=== PATIENT | male | born 1945 | race Caucasian/White ===

== ENCOUNTER 2021-01-28 07:04 | Emergency (ER) | payer MEDICARE, OTHER, SELFPAY ==
[2021-01-28] VITALS (54 sets, daily range): BP systolic 133–192; BP diastolic 79–122; PULSE 78–133; RESP 10–28; TEMP 36.2; O2SAT 95–100; BMI 30.2
--- NOTE | 2021-01-28 | DI.RAD.S_ITS ---
PROCEDURE: XR CHEST 1V INDICATIONS: ENDOTRACHIAL TUBE PLACEMENT TECHNIQUE: One view of the chest was acquired. COMPARISON: [facility], CT, CT ANGIO HEAD AND NECK, 01/28/2021, 8:55. [facility], CR, XR CHEST 1V, 01/28/2021, 8:06. FINDINGS: Surgical changes and devices: Endotracheal tube in the midtrachea. Lungs and pleura: Lungs appear clear. No pleural effusions or pneumothorax. Mediastinum: Mediastinal contours appear normal. Heart size is enlarged. Bones and chest wall: No suspicious bony lesions. Overlying soft tissues appear unremarkable. IMPRESSION: Endotracheal tube in the midtrachea. Cardiomegaly. Dictated by: Miles Harrison M.D. on 01/28/2021 at 11:14 Approved by: Miles Harrison M.D. on 01/28/2021 at 11:16
--- NOTE | 2021-01-28 07:11 | DI.CT.S_ITS ---
PROCEDURE: CT HEAD/BRAIN WO CON INDICATIONS: unresponsive TECHNIQUE: Noncontrast 4.5 mm thick angled axial sections acquired from the foramen magnum to the vertex, with coronal and sagittal reformats. For radiation dose reduction, the following was used: automated exposure control, adjustment of mA and/or kV according to patient size. COMPARISON: None. FINDINGS: Image quality: Excellent. CSF spaces: Basal cisterns are patent. No extra-axial fluid collections. The ventricles are symmetric in size and shape. Brain: No intracranial bleeds or masses. There is cerebral volume loss for age, with resultant ventricular and sulcal prominence. There are periventricular and deep white matter chronic small vessel ischemic changes. There is intracranial internal carotid artery atherosclerosis. Skull and face: Calvarium and visualized facial bones appear intact, without suspicious lesions. Sinuses: Visualized sinuses and mastoids are clear. IMPRESSION: Mild motion artifact, no acute disease found.7 Dictated by: Adan Raymond M.D.7 on 01/28/2021 at 7:19 Approved by: Adan Raymond M.D. on 01/28/2021 at 7:24
--- NOTE | 2021-01-28 07:21 | ED_ITS ---
HPI - Altered Mental Status General Chief Complaint: Unresponsive Stated Complaint: Seizure - Unconscious Time Seen by Provider: 01/28/21 07:21 Source: family and EMS Mode of arrival: EMS Limitations: altered mental status History of Present Illness HPI narrative: 75-year-old male nonsmoker with history of hypertension, heart failure, amyloidosis followed by cardiology at the [facility] presents by EMS this morning for what sounds like seizure-like activity followed by prolonged unconsciousness. Medics report, per the , the patient went to bed in his normal state of health at 2200 and this morning had some seizure-like activity and heavy breathing that was witnessed by the son at 0600 Apparently he became very rigid in his jaw and extremities for with the son reports up to 20 minutes or so and the patient has been unconscious and unresponsive ever since. He has no history of trauma, fevers or seizure history. Paramedics found him with stable vital signs, guarding his airway, blood glucose over 100. Patient was given Narcan 0.8 mg IV. There is no report of use of opioids, benzo diazepines, alcohol or other sedating agents. Nasopharyngeal airway placed by medics and caryn. Patient taken directly to CT and activated as code stroke given concern for bleed. MD complaint: altered mental status Onset (ago): hour(s) Timing confirmed by: spouse and family member Severity: severe Consistency of symptoms: constant Treatments prior to arrival: oxygen Related Data Home Medications Medication Instructions Recorded Confirmed albuterol sulfate 2 puff INHALATION PRN PRN 01/28/21 01/28/21 betamethasone dipropionate 1 applic TOPICAL DAILY PRN 01/28/21 01/28/21 carvedilol 3.125 mg PO BID 01/28/21 01/28/21 eplerenone 25 mg 01/28/21 furosemide 40 mg 01/28/21 rosuvastatin 5 mg PO Q OTHER DAY 01/28/21 01/28/21 sacubitril-valsartan [Entresto] 1 tab PO BID 01/28/21 01/28/21 tafamidis 61 mg PO 01/28/21 Allergies Allergy/AdvReac Type Severity Reaction Status Date / Time No Known Drug Allergies Allergy Verified 01/28/21 07:39 Review of Systems Review of Systems ROS Unobtainable: Unobtainable due to mental status/LOC Patient History Substance Use Type: does not use Exam Narrative Exam Narrative: GENERAL: [75] year old patient appears stated age. Well- developed patient, in mild distress. Guarding airway, not responding to noxious stimuli though demonstrating movement of all 4 extremities HEAD: Atraumatic. Normocephalic. EYES: Pupils equal round and reactive, pinpoint. Extraocular motions intact. No scleral icterus. No injection or drainage. ENT: Nose without bleeding, purulent drainage. Throat without erythema, tonsillar hypertrophy or exudate. Airway patent. NECK: Trachea midline. Non tender CARDIOVASCULAR: Regular rate and rhythm without murmurs, gallops, or rubs. RESPIRATORY: Clear to auscultation. Breath sounds equal bilaterally. No wheezes, rales, or rhonchi. GASTROINTESTINAL: Abdomen soft, non-tender, nondistended. EXTREMITIES: No edema or joint tenderness. BACK: Nontender without deformity or crepitance. No flank tenderness. NEURO: Patellar reflfexes in tact. SKIN: No rash or erythema of visible areas Initial Vital Signs Initial Vital Signs: Vital Signs Temperature 97.1 F L 01/28/21 07:15 Pulse Rate 78 01/28/21 07:15 Respiratory Rate 20 01/28/21 07:15 Blood Pressure 192/105 H 01/28/21 07:15 Pulse Oximetry 98 01/28/21 07:15 Procedures Intubation Time out performed: Yes sedative: Ketamine Mg Given: 40 paralytic: Rocuronium Mg Given: 120 Laryngoscope: other Assist Device Used: other ET Tube Size: 7.5 ET Tube Uncuffed: No Tube Secured Depth (cm): 23 Tube Secured Location: teeth Tube Placement Confirmation: Visualized tube passing through cords, Equal breath sounds bilaterally, No breath sounds over epigastrium, Confirmation by capnometry and Chest Xray Patient Tolerated Procedure: Well Intubation Complications: none Scores GCS [place] coma scale eye opening: None NIH Stroke Scale Level of Conciousness: Not alert, requires repeated stimulation to attend, or is obtunded Ask month/age: Answers neither question correctly, aphasic, stuporous, coma Open/close eyes, close hand: Performs neither task correctly Best gaze horizontal: Forced deviation or total gaze paresis not overcome Visual zabala: Bilateral hemianopia, blind Facial palsy: Normal symetrical movement Left arm drift: No effort against gravity Right arm drift: No effort against gravity Left leg drift: No effort against gravity Right leg drift: No effort against gravity Limb ataxia: Amputation, joint fusion Sensory on face/arms/legs: Severe to total sensory loss, 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 Does not recognize own hand, one side Total NIH Stroke scale score: 32 Course Orders Ordered: ED Orders 01/28/21 07:07 EKG-12 Lead Stat 01/28/21 07:11 CT head/brain wo con Stat 01/28/21 07:25 Venous Blood Gas Stat 01/28/21 07:30 Acetaminophen Stat Ammonia (NH3) Stat Complete Blood Count AUTO DIFF Stat Comprehensive Metabolic Panel Stat Ethanol (ETOH) Stat Lactate (Lactic Acid) Stat NT-proBNP (BNP-Adult 18+) Stat Osmolality, Serum Stat Procalcitonin Stat Prolactin Stat Salicylate Stat Thyroid Stimulating Hormone Stat Troponin & CK Cardiac Panel Stat 01/28/21 07:40 COVID19 - ADMIT (TICKETING CLERK swab/PCR) Stat Urinalysis and Microscopic Stat Urine Drug Screen, Rapid Stat 01/28/21 07:55 Blood Culture Stat 01/28/21 08:04 XR chest 1V Stat 01/28/21 08:53 CT angio head and neck Stat Discontinued Medications Sodium Chloride (Normal Saline 0.9%) 1,000 mls @ 150 mls/hr IV CONT MARY Last Infusion: 01/28/21 10:52 Dose: 0 mls/hr Documented by: Admin: 01/28/21 07:23 Dose: 150 mls/hr Documented by: AMARJIT Thiamine HCl 200 mg/ Sodium (Chloride) 102 mls @ 408 mls/hr IV NOW ONE Stop: 01/28/21 07:12 Last Infusion: 01/28/21 07:45 Dose: 0 mls/hr Documented by: Admin: 01/28/21 07:23 Dose: 408 mls/hr Documented by: NEFTALIONEBrandt Naloxone HCl (Naloxone 0.4 Mg/Ml Vial) 0.2 mg IV Q2MIN PRN PRN Reason: Opiate Reversal Last Admin: 01/28/21 07:23 Dose: 0.2 mg Documented by: AMARJIT Rocuronium Juliaetta (Rocuronium 100 Mg/10 Ml Vial) 120 mg IV NOW ONE Stop: 01/28/21 10:35 Last Admin: 01/28/21 11:26 Dose: 120 mg Documented by: SUKHDEEP Reevaluation(s) Reevaluation #1: patient airway guarded. SpO2 96%, coughs with suction, clearing throat. Vital Signs Vital signs: Vital Signs - 8 hr 01/28/21 07:15 01/28/21 07:30 01/28/21 07:35 Temperature 97.1 F L Pulse Rate 78 83 81 Respiratory Rate 20 20 21 Blood Pressure 192/105 H 167/99 H Pulse Oximetry 98 98 97 01/28/21 07:40 01/28/21 07:44 01/28/21 07:45 Temperature Pulse Rate 94 H 86 88 Respiratory Rate 28 H 22 19 Blood Pressure 172/98 H Pulse Oximetry 98 98 98 01/28/21 07:50 01/28/21 07:55 01/28/21 07:56 Temperature Pulse Rate 91 H 93 H 91 H Respiratory Rate 19 21 20 Blood Pressure 175/98 H Pulse Oximetry 97 98 97 01/28/21 07:57 01/28/21 07:59 01/28/21 08:00 Temperature Pulse Rate 91 H 91 H 89 Respiratory Rate 19 20 20 Blood Pressure 175/105 H 166/96 H 162/97 H Pulse Oximetry 98 97 97 01/28/21 08:05 01/28/21 08:10 01/28/21 08:12 Temperature Pulse Rate 89 118 H 90 Respiratory Rate 19 20 19 Blood Pressure 147/95 H 172/95 H Pulse Oximetry 96 96 97 01/28/21 08:15 01/28/21 08:20 01/28/21 08:25 Temperature Pulse Rate 123 H 124 H 120 H Respiratory Rate 21 23 21 Blood Pressure 168/121 H 176/95 H Pulse Oximetry 97 97 96 01/28/21 08:26 01/28/21 08:30 01/28/21 08:35 Temperature Pulse Rate 104 H 122 H 122 H Respiratory Rate 23 20 21 Blood Pressure 151/95 H 167/85 H 137/90 Pulse Oximetry 96 96 96 01/28/21 08:40 01/28/21 08:45 01/28/21 08:50 Temperature Pulse Rate 131 H 120 H 121 H Respiratory Rate 26 H 18 19 Blood Pressure 147/94 H 160/89 H 157/95 H Pulse Oximetry 97 97 96 01/28/21 09:08 01/28/21 09:10 01/28/21 09:15 Temperature Pulse Rate 118 H 117 H 118 H Respiratory Rate 17 18 19 Blood Pressure 133/88 Pulse Oximetry 97 96 96 01/28/21 09:20 01/28/21 09:25 01/28/21 09:30 Temperature Pulse Rate 119 H 119 H 119 H Respiratory Rate 18 20 17 Blood Pressure 134/91 H Pulse Oximetry 96 95 96 01/28/21 09:35 01/28/21 09:40 01/28/21 09:45 Temperature Pulse Rate 120 H 119 H 121 H Respiratory Rate 19 18 18 Blood Pressure Pulse Oximetry 95 96 96 01/28/21 09:50 01/28/21 09:55 01/28/21 10:00 Temperature Pulse Rate 119 H 116 H 116 H Respiratory Rate 19 19 19 Blood Pressure 137/90 Pulse Oximetry 96 96 96 01/28/21 10:05 01/28/21 10:10 01/28/21 10:15 Temperature Pulse Rate 115 H 118 H 117 H Respiratory Rate 17 22 20 Blood Pressure Pulse Oximetry 96 96 97 01/28/21 10:20 01/28/21 10:25 01/28/21 10:30 Temperature Pulse Rate 116 H 116 H 115 H Respiratory Rate 19 19 20 Blood Pressure Pulse Oximetry 96 97 97 01/28/21 10:32 01/28/21 10:33 01/28/21 10:34 Temperature Pulse Rate 115 H 113 H 112 H Respiratory Rate 20 20 19 Blood Pressure 141/90 H 149/87 H 140/79 Pulse Oximetry 96 97 96 01/28/21 10:35 01/28/21 10:36 01/28/21 10:37 Temperature Pulse Rate 122 H 119 H 127 H Respiratory Rate 16 10 L 18 Blood Pressure 136/93 H 140/89 158/108 H Pulse Oximetry 95 100 100 01/28/21 10:38 01/28/21 10:40 01/28/21 10:42 Temperature Pulse Rate 132 H 133 H 127 H Respiratory Rate 12 18 12 Blood Pressure 167/117 H 178/122 H 163/114 H Pulse Oximetry 100 100 99 01/28/21 10:45 01/28/21 10:50 Temperature Pulse Rate 124 H 121 H Respiratory Rate 15 14 Blood Pressure 157/98 H Pulse Oximetry 98 99 MDM - Altered Mental Status Lab Data Result diagrams: 01/28/21 07:30 01/28/21 07:30 Labs: Lab Results 01/28/21 01/28/21 01/28/21 Range/Units 07:25 07:30 07:30 WBC 5.0 (4.5-11.0) X10^3/uL RBC 4.55 (4.5-5.9) X10^6/uL Hgb 14.8 (13.5-17.5) g/dL Hct 44.6 (41-53) % MCV 97.9 (80-100) fL MCH 32.6 (26-34) PG MCHC 33.3 (30-36) % RDW 13.3 (11.6-14.8) % Plt Count 226 (150-400) X10^3/uL Neut % (Auto) 53.6 (50-75) % Lymph % (Auto) 26.9 (25-40) % Anson % (Auto) 15.5 H (3-14) % Eos % (Auto) 3.5 (2-4) % Baso % (Auto) 0.5 (0-2) % Neut # (Auto) 2700 (6744-4905) /uL Lymph # (Auto) 1400 (8920-1267) /uL Anson # (Auto) 800 (0-900) /uL Eos # (Auto) 200 (0-450) /uL Baso # (Auto) 0 (0-100) /uL VBG pH 7.44 H (7.33-7.43) VBG pCO2 30.1 L (45-50) mmHg VBG pO2 46 H (35-45) mmHg VBG HCO3 21 L (23-28) mmol/L VBG Total CO2 21 L (24-29) mmol/L VBG O2 Saturation 84 H (70-75) % VBG Base Excess -4.0 L (0-4) mmol/L Sodium 138 (137-145) mmol/L Potassium 4.3 (3.4-5.1) mmol/L Chloride 107 (98-107) mmol/L Carbon Dioxide 21 L (22-32) mmol/L BUN 30 H (9-20) mg/dL Creatinine 1.28 H (0.66-1.25) mg/dL Estimated GFR 54.8 L (>60) mL/min BUN/Creatinine Ratio 23.4 H (6-22) Glucose 113 H (80-110) mg/dL Lactate (0.7-2.1) mmol/L Calcium 9.2 (8.4-10.2) mg/dL Total Bilirubin 0.7 (0.2-1.3) mg/dL AST 32 (17-59) IU/L ALT 37 (<50) IU/L Alkaline Phosphatase 117 (38-126) U/L Ammonia (9-30) umol/L Total Creatine Kinase 68 (55-170) U/L CK-MB (CK-2) TNP CK-MB (CK-2) Rel Index TNP Troponin I 0.137 H* (0.01-0.034) ng/mL NT-Pro-B Natriuret Pep (<450) pg/mL Total Protein 6.9 (6.3-8.2) g/dL Albumin 3.9 (3.5-5.0) g/dL Globulin 3.0 (1.7-4.1) g/dL Albumin/Globulin Ratio 1.3 (1.0-2.8) Procalcitonin 0.09 (<0.5) ng/mL TSH (0.47-4.68) uIU/mL Prolactin 26.5 H (3.7-17.9) ng/mL Urine Color Urine Appearance Urine pH (4.5-8.0) Ur Specific N[place]omo (1.000-1.035) Urine Protein (Negative) Urine Glucose (UA) (Negative) g/dL Urine Ketones (NEGATIVE) Urine Occult Blood (Negative) Urine Nitrate (Negative) Urine Bilirubin (NEGATIVE) Urine Urobilinogen (0.2) E.U./dL Ur Leukocyte Esterase (NEGATIVE) Urine RBC (0-5/HPF) Urine WBC (0-5/HPF) Ur Squamous Epith Cells (0-5/HPF) Urine Bacteria (None) Ur Culture Indicated? Salicylates < 1.0 (<20) mg/dL U Opiates 300ng/mL cut (Negative) Ur Oxycodone Screen (Negative) Urine Methadone Screen (Negative) Acetaminophen < 10 L (10-30) ug/mL Ur Barbiturates Screen (Negative) U Tricyclic Antidepress (Negative) Ur Phencyclidine Scrn (Negative) Ur Amphetamines Screen (Negative) U Methamphetamines Scrn (Negative) Ur MDMA Scrn (Ecstasy) (Negative) U Benzodiazepines Scrn (Negative) Urine Cocaine Screen (Negative) U Marijuana (THC) Screen (Negative) Ethyl Alcohol < 10 ( - 10) mg/dL SARS-CoV-2 (PCR) (Negative) 01/28/21 01/28/21 01/28/21 Range/Units 07:30 07:30 07:30 WBC (4.5-11.0) X10^3/uL RBC (4.5-5.9) X10^6/uL Hgb (13.5-17.5) g/dL Hct (41-53) % MCV (80-100) fL MCH (26-34) PG MCHC (30-36) % RDW (11.6-14.8) % Plt Count (150-400) X10^3/uL Neut % (Auto) (50-75) % Lymph % (Auto) (25-40) % Anson % (Auto) (3-14) % Eos % (Auto) (2-4) % Baso % (Auto) (0-2) % Neut # (Auto) (1927-1529) /uL Lymph # (Auto) (4080-3724) /uL Anson # (Auto) (0-900) /uL Eos # (Auto) (0-450) /uL Baso # (Auto) (0-100) /uL VBG pH (7.33-7.43) VBG pCO2 (45-50) mmHg VBG pO2 (35-45) mmHg VBG HCO3 (23-28) mmol/L VBG Total CO2 (24-29) mmol/L VBG O2 Saturation (70-75) % VBG Base Excess (0-4) mmol/L Sodium (137-145) mmol/L Potassium (3.4-5.1) mmol/L Chloride (98-107) mmol/L Carbon Dioxide (22-32) mmol/L BUN (9-20) mg/dL Creatinine (0.66-1.25) mg/dL Estimated GFR (>60) mL/min BUN/Creatinine Ratio (6-22) Glucose (80-110) mg/dL Lactate 1.4 (0.7-2.1) mmol/L Calcium (8.4-10.2) mg/dL Total Bilirubin (0.2-1.3) mg/dL AST (17-59) IU/L ALT (<50) IU/L Alkaline Phosphatase (38-126) U/L Ammonia 9 (9-30) umol/L Total Creatine Kinase (55-170) U/L CK-MB (CK-2) CK-MB (CK-2) Rel Index Troponin I (0.01-0.034) ng/mL NT-Pro-B Natriuret Pep (<450) pg/mL Total Protein (6.3-8.2) g/dL Albumin (3.5-5.0) g/dL Globulin (1.7-4.1) g/dL Albumin/Globulin Ratio (1.0-2.8) Procalcitonin (<0.5) ng/mL TSH 1.38 (0.47-4.68) uIU/mL Prolactin (3.7-17.9) ng/mL Urine Color Urine Appearance Urine pH (4.5-8.0) Ur Specific N[place] (1.000-1.035) Urine Protein (Negative) Urine Glucose (UA) (Negative) g/dL Urine Ketones (NEGATIVE) Urine Occult Blood (Negative) Urine Nitrate (Negative) Urine Bilirubin (NEGATIVE) Urine Urobilinogen (0.2) E.U./dL Ur Leukocyte Esterase (NEGATIVE) Urine RBC (0-5/HPF) Urine WBC (0-5/HPF) Ur Squamous Epith Cells (0-5/HPF) Urine Bacteria (None) Ur Culture Indicated? Salicylates (<20) mg/dL U Opiates 300ng/mL cut (Negative) Ur Oxycodone Screen (Negative) Urine Methadone Screen (Negative) Acetaminophen (10-30) ug/mL Ur Barbiturates Screen (Negative) U Tricyclic Antidepress (Negative) Ur Phencyclidine Scrn (Negative) Ur Amphetamines Screen (Negative) U Methamphetamines Scrn (Negative) Ur MDMA Scrn (Ecstasy) (Negative) U Benzodiazepines Scrn (Negative) Urine Cocaine Screen (Negative) U Marijuana (THC) Screen (Negative) Ethyl Alcohol ( - 10) mg/dL SARS-CoV-2 (PCR) (Negative) 01/28/21 01/28/21 01/28/21 Range/Units 07:30 07:40 07:40 WBC (4.5-11.0) X10^3/uL RBC (4.5-5.9) X10^6/uL Hgb (13.5-17.5) g/dL Hct (41-53) % MCV (80-100) fL MCH (26-34) PG MCHC (30-36) % RDW (11.6-14.8) % Plt Count (150-400) X10^3/uL Neut % (Auto) (50-75) % Lymph % (Auto) (25-40) % Anson % (Auto) (3-14) % Eos % (Auto) (2-4) % Baso % (Auto) (0-2) % Neut # (Auto) (8206-8650) /uL Lymph # (Auto) (1200-1041) /uL Anson # (Auto) (0-900) /uL Eos # (Auto) (0-450) /uL Baso # (Auto) (0-100) /uL VBG pH (7.33-7.43) VBG pCO2 (45-50) mmHg VBG pO2 (35-45) mmHg VBG HCO3 (23-28) mmol/L VBG Total CO2 (24-29) mmol/L VBG O2 Saturation (70-75) % VBG Base Excess (0-4) mmol/L Sodium (137-145) mmol/L Potassium (3.4-5.1) mmol/L Chloride (98-107) mmol/L Carbon Dioxide (22-32) mmol/L BUN (9-20) mg/dL Creatinine (0.66-1.25) mg/dL Estimated GFR (>60) mL/min BUN/Creatinine Ratio (6-22) Glucose (80-110) mg/dL Lactate (0.7-2.1) mmol/L Calcium (8.4-10.2) mg/dL Total Bilirubin (0.2-1.3) mg/dL AST (17-59) IU/L ALT (<50) IU/L Alkaline Phosphatase (38-126) U/L Ammonia (9-30) umol/L Total Creatine Kinase (55-170) U/L CK-MB (CK-2) CK-MB (CK-2) Rel Index Troponin I (0.01-0.034) ng/mL NT-Pro-B Natriuret Pep 3960 H (<450) pg/mL Total Protein (6.3-8.2) g/dL Albumin (3.5-5.0) g/dL Globulin (1.7-4.1) g/dL Albumin/Globulin Ratio (1.0-2.8) Procalcitonin (<0.5) ng/mL TSH (0.47-4.68) uIU/mL Prolactin (3.7-17.9) ng/mL Urine Color Yellow Urine Appearance Clear Urine pH 5.5 (4.5-8.0) Ur Specific N[place] 1.020 (1.000-1.035) Urine Protein Negative (Negative) Urine Glucose (UA) Negative (Negative) g/dL Urine Ketones Negative (NEGATIVE) Urine Occult Blood 3+ H (Negative) Urine Nitrate Negative (Negative) Urine Bilirubin Negative (NEGATIVE) Urine Urobilinogen 0.2 (0.2) E.U./dL Ur Leukocyte Esterase Negative (NEGATIVE) Urine RBC 1-5/hpf (0-5/HPF) Urine WBC None seen (0-5/HPF) Ur Squamous Epith Cells 0-1 /hpf (0-5/HPF) Urine Bacteria Few (2-10) H (None) Ur Culture Indicated? Cult not indicated Salicylates (<20) mg/dL U Opiates 300ng/mL cut Negative (Negative) Ur Oxycodone Screen Negative (Negative) Urine Methadone Screen Negative (Negative) Acetaminophen (10-30) ug/mL Ur Barbiturates Screen Negative (Negative) U Tricyclic Antidepress Negative (Negative) Ur Phencyclidine Scrn Negative (Negative) Ur Amphetamines Screen Negative (Negative) U Methamphetamines Scrn Negative (Negative) Ur MDMA Scrn (Ecstasy) Negative (Negative) U Benzodiazepines Scrn Negative (Negative) Urine Cocaine Screen Negative (Negative) U Marijuana (THC) Screen Negative (Negative) Ethyl Alcohol ( - 10) mg/dL SARS-CoV-2 (PCR) (Negative) 01/28/21 Range/Units 07:40 WBC (4.5-11.0) X10^3/uL RBC (4.5-5.9) X10^6/uL Hgb (13.5-17.5) g/dL Hct (41-53) % MCV (80-100) fL MCH (26-34) PG MCHC (30-36) % RDW (11.6-14.8) % Plt Count (150-400) X10^3/uL Neut % (Auto) (50-75) % Lymph % (Auto) (25-40) % Anson % (Auto) (3-14) % Eos % (Auto) (2-4) % Baso % (Auto) (0-2) % Neut # (Auto) (0406-5147) /uL Lymph # (Auto) (8217-2089) /uL Anson # (Auto) (0-900) /uL Eos # (Auto) (0-450) /uL Baso # (Auto) (0-100) /uL VBG pH (7.33-7.43) VBG pCO2 (45-50) mmHg VBG pO2 (35-45) mmHg VBG HCO3 (23-28) mmol/L VBG Total CO2 (24-29) mmol/L VBG O2 Saturation (70-75) % VBG Base Excess (0-4) mmol/L Sodium (137-145) mmol/L Potassium (3.4-5.1) mmol/L Chloride (98-107) mmol/L Carbon Dioxide (22-32) mmol/L BUN (9-20) mg/dL Creatinine (0.66-1.25) mg/dL Estimated GFR (>60) mL/min BUN/Creatinine Ratio (6-22) Glucose (80-110) mg/dL Lactate (0.7-2.1) mmol/L Calcium (8.4-10.2) mg/dL Total Bilirubin (0.2-1.3) mg/dL AST (17-59) IU/L ALT (<50) IU/L Alkaline Phosphatase (38-126) U/L Ammonia (9-30) umol/L Total Creatine Kinase (55-170) U/L CK-MB (CK-2) CK-MB (CK-2) Rel Index Troponin I (0.01-0.034) ng/mL NT-Pro-B Natriuret Pep (<450) pg/mL Total Protein (6.3-8.2) g/dL Albumin (3.5-5.0) g/dL Globulin (1.7-4.1) g/dL Albumin/Globulin Ratio (1.0-2.8) Procalcitonin (<0.5) ng/mL TSH (0.47-4.68) uIU/mL Prolactin (3.7-17.9) ng/mL Urine Color Urine Appearance Urine pH (4.5-8.0) Ur Specific [place] (1.000-1.035) Urine Protein (Negative) Urine Glucose (UA) (Negative) g/dL Urine Ketones (NEGATIVE) Urine Occult Blood (Negative) Urine Nitrate (Negative) Urine Bilirubin (NEGATIVE) Urine Urobilinogen (0.2) E.U./dL Ur Leukocyte Esterase (NEGATIVE) Urine RBC (0-5/HPF) Urine WBC (0-5/HPF) Ur Squamous Epith Cells (0-5/HPF) Urine Bacteria (None) Ur Culture Indicated? Salicylates (<20) mg/dL U Opiates 300ng/mL cut (Negative) Ur Oxycodone Screen (Negative) Urine Methadone Screen (Negative) Acetaminophen (10-30) ug/mL Ur Barbiturates Screen (Negative) U Tricyclic Antidepress (Negative) Ur Phencyclidine Scrn (Negative) Ur Amphetamines Screen (Negative) U Methamphetamines Scrn (Negative) Ur MDMA Scrn (Ecstasy) (Negative) U Benzodiazepines Scrn (Negative) Urine Cocaine Screen (Negative) U Marijuana (THC) Screen (Negative) Ethyl Alcohol ( - 10) mg/dL SARS-CoV-2 (PCR) Negative (Negative) Point of Care Testing Glucose POC 106 Imaging Data Chest x-ray: Radiologist's Impression: Thor Rosas Casandra M [address] [id number] ReportSigned Patient: Thor Rosas [facility]#: [id number]: 6Acct:[id number]/Sex: 75 / MDate of Service: 01/28/21Loc: EDAccession Number: [id number] Procedure: XR chest 1V Ordering Provider: Nader Rosenbaum D.O. PROCEDURE: XR CHEST 1V INDICATIONS: unresponsive, work of breathing, history of CHF TECHNIQUE: One view of the chest was acquired. COMPARISON: None. FINDINGS: Surgical changes and devices: None. Lungs and pleura: There is prominence of the central pulmonary vasculature. No focal airspace opacity is seen. No pleural effusions or pneumothorax. Mediastinum: Mediastinal contours appear normal. Cardiac silhouette is enlarged. Bones and chest wall: No suspicious bony lesions. Overlying soft tissues appear unremarkable. Degenerative changes are seen in the left glenohumeral joint and the acromioclavicular joints as well as the included spine. IMPRESSION: Increased size of the cardiac silhouette is most likely related to cardiomegaly, although a pericardial effusion is not excluded. Prominence of the central pulmonary vasculature is compatible with mild volume overload or congestive heart failure. Dictated by: Derick Shi M.D. on 01/28/2021 at 8:23 Approved by: Derick Shi M.D. on 01/28/2021 at 8:26 CT scan - head: Radiologist's Impression: Thor Rosas A 75 M [address] [id number] Scan ReportSigned Patient: Thor RosasMR#: [id number]: 1945cct:[id number]/Sex: 75 / MDate of Service: 01/28/21Loc: EDAccession Number: [id number] Procedure: CT head/brain wo con Ordering Provider: Nader Rosenbaum D.O. PROCEDURE: CT HEAD/BRAIN WO CON INDICATIONS: unresponsive TECHNIQUE: Noncontrast 4.5 mm thick angled axial sections acquired from the foramen magnum to the vertex, with coronal and sagittal reformats. For radiation dose reduction, the following was used: automated exposure control, adjustment of mA and/or kV according to patient size. COMPARISON: None. FINDINGS: Image quality: Excellent. CSF spaces: Basal cisterns are patent. No extra-axial fluid collections. The ventricles are symmetric in size and shape. Brain: No intracranial bleeds or masses. There is cerebral volume loss for age, with resultant ventricular and sulcal prominence. There are periventricular and deep white matter chronic small vessel ischemic changes. There is intracranial internal carotid artery atherosclerosis. Skull and face: Calvarium and visualized facial bones appear intact, without suspicious lesions. Sinuses: Visualized sinuses and mastoids are clear. IMPRESSION: Mild motion artifact, no acute disease found.7 Dictated by: Adan Raymond M.D.7 on 01/28/2021 at 7:19 Approved by: Adan Raymond M.D. on 01/28/2021 at 7:24 CTA Head/Neck: Radiologist's Impression: [address] [id number] Scan ReportSigned Patient: Thor Rosas [facility]#: [id number]: 6Acct:[id number]/Sex: 75 / MDate of Service: 01/28/21Loc: EDAccession Number: [id number] Procedure: CT angio head and neck Ordering Provider: Nader Rosenbaum D.O. PROCEDURE: CT ANGIO HEAD AND NECK INDICATIONS: unresponsive, stroke like features TECHNIQUE: After the administration of intravenous contrast, 1 mm thick sections acquired from the aortic arch through the Cheesh-[place] of Virk. Post-contrast 4.5 mm thick sections then re-acquired from the foramen magnum to the vertex. 3-dimensional qnubeju-cntsvpqwf-tjveipdphi (MIP) and/or volume rendering reformats were acquired of the central intracranial vasculature and neck separately. COMPARISON: [facility], CT, CT HEAD/BRAIN WO CON, 01/28/2021, 7:09. FINDINGS: Image quality: Excellent. BRAIN: CSF spaces: Ventricles are normal in size and shape. Basal cisterns are patent. No extra-axial fluid collections. Brain: No midline shift. No intracranial bleeds or masses. Question of subtle edema involving the midbrain, suggesting a possible acute midbrain infarct. There is also question central edema in the lori. This suggests a possible acute pontine infarct as well. Skull and face: Calvarium and facial bones appear intact, without suspicious lesions. Orbits appear normal. Sinuses: Sinuses and mastoids are clear. HEAD CT ANGIOGRAPHY: Anterior circulation: Intracranial internal carotid arteries are normal in size and flow. The flow within the paired anterior cerebral arteries is normal and symmetric. The flow within the middle cerebral arteries is normal and symmetric. The anterior communicating artery is seen. No aneurysms are seen. Posterior circulation: There is short segment embolic occlusion of the V4 segment of the distal right vertebral artery. The proximal basilar artery is patent. There is occlusion of the superior 3rd of the basilar artery. Flow within the posterior cerebral arteries is normal and symmetric. No aneurysms are seen. NECK CT ANGIOGRAPHY: Carotid system: The great vessels demonstrate a conventional anatomy as they arise from the aortic arch. The origins of the common carotid arteries appear patent. The common carotid arteries demonstrate normal caliber and courses. There is a greater than 90% left external carotid artery origin stenosis and a probable severe, greater than 70% web-like stenosis of the proximal left internal carotid artery. Calcification makes interpretation of the proximal right internal carotid artery challenging. There is felt to be at least a moderate right internal carotid artery stenosis. Posterior circulation: The origins of the vertebral arteries both appear widely patent. The more superior extracranial portions of both vertebral arteries also demonstrate normal courses and calibers. They join to form a normal appearing basilar artery. Soft tissues: Visualized neck soft tissues demonstrate no suspicious abnormalities. Orotracheal tube in place, extending to the level of inferior C3. Bones: No suspicious bony lesions. Visualized cervical spine appears normally aligned. There is a very large osteophyte off the region of the right C5-C6 uncovertebral joint which results in marked canal stenosis and foraminal stenosis IMPRESSION: 1. Embolic phenomenon to the basilar artery with occlusion of the superior 3rd of the basilar artery. There is also associated small embolus to the distal right vertebral artery involving the V4 segment. 2. Question acute infarct of the lori and midbrain. This is not definite. 3. No acute hemorrhage. 4. Web-like stenosis of the proximal left internal carotid artery, likely with a severe stenosis. There is also a high-grade stenosis of the left external carotid artery at its origin. 5. High-grade stenosis of the right side of the canal and right foramen at C5-C6 is incidentally noted. Comment: Findings were discussed with Dr. Rosenbaum on 01/28/2021 at 0942 hours and then again at 0951 hours. Any quantitative measurements of stenosis were performed using NASCET criteria. Dictated by: Nick Oliver M.D. on 01/28/2021 at 9:31 Approved by: Nick Oliver M.D. on 01/28/2021 at 10:00 [facility] Narrative Medical decision making narrative: 0853 - Unclear etiology of patient's encephalopathy at this point time. Patient sent for CTA Head/Neck to further elucidate. Differential includes atypical in quite prolonged postictal phase after a first-time seizure versus stroke versus yet to be determined toxic or metabolic encephalopathy though labs at suggest this is not the case. 0930 - call from radiology to discuss CTA findings. Images pushed to Stroke and /[facility]. [facility] has interviewed patient and family and agrees with rapid transport to [facility]. family strongly pushing for [facility] given patient history. There is some delay in reaching appropriate provider so a parallel call to [facility] initiated, however ANAYELI ([facility] Stroke) accepts patient to [facility] ED. [facility] is en route. Family updated DARYN can be reached at [phone]. She will drive down with son. She is aware of and in agreement with plan. Critical Care Time Critical Care Time Critical Care Time: Yes Total Critical Care Time: 45 Attestation: The high probability of a clinically significant, sudden or life threatening deterioration of the [NV/CV] system(s) required my full and direct attention, intervention and personal management. The aggregate critical care time was [45] minutes. 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
[2021-01-28] MEDS: NALOXONE 0.4 MG/ML VIAL 0.2 MG IV (07:23)
[2021-01-28] MEDS: THIAMINE 200 MG in SODIUM CHLORIDE 0.9% 100 ML 408 ML IV (07:23)
[2021-01-28] MEDS: SODIUM CHLORIDE 0.9% 1,000 ML 150 ML IV (07:23)
[2021-01-28 07:46] LABS: Add Manual Diff / Slide Review NO; Basophils Absolute Auto 0 /uL (0-100); Basophils Percent Auto 0.5 % (0-2); Eosinophils Absolute Auto 200 /uL (0-450); Eosinophils Percent Auto 3.5 % (2-4); Hematocrit 44.6 % (41-53); Hemoglobin 14.8 g/dL (13.5-17.5); Lymphocytes Absolute Auto 1400 /uL (1100-4500); Lymphocytes Percent Auto 26.9 % (25-40); Mean Corpuscular HGB Conc 33.3 % (30-36); Mean Corpuscular Hemoglobin 32.6 PG (26-34); Mean Corpuscular Volume 97.9 fL (80-100); Monocytes Absolute Auto 800 /uL (0-900); Monocytes Percent Auto 15.5 % (3-14); Neutrophils Absolute Auto 2700 /uL (1500-7000); Neutrophils Percent Auto 53.6 % (50-75); Platelet Count 226 X10^3/uL (150-400); Red Blood Cell Count 4.55 X10^6/uL (4.5-5.9); Red Cell Distribution Width 13.3 % (11.6-14.8)
[2021-01-28 07:49] LABS: Appearance Urine UA CLEAR; Bilirubin Urine UA NEGATIVE (NEGATIVE); Color Urine UA YELLOW; Glucose Urine UA NEGATIVE (Negative); Ketones Urine UA NEGATIVE (NEGATIVE); Leukocyte Esterase Urine UA NEGATIVE (NEGATIVE); Nitrite Urine UA NEGATIVE (Negative); Occult Blood Urine UA 3+ (Negative); Protein Urine UA NEGATIVE (Negative); Urobilinogen Urine UA 0.2 E.U./dL (0.2); pH Urine UA 5.5 (4.5-8.0)
[2021-01-28 07:50] LABS: WBC Urine None Seen (0-5/HPF)
[2021-01-28 07:52] LABS: Ammonia (NH3) 9 umol/L (9-30)
[2021-01-28 07:53] LABS: UR Morphine/Opiate cutoff 300 Negative (Negative); Ur Creatinine Normal (Normal); Ur Specific Gravity Normal (Normal); Urine Amphetamines Negative (Negative); Urine Barbiturates Negative (Negative); Urine Benzodiazepines Negative (Negative); Urine Cocaine Negative (Negative); Urine MDMA Negative (Negative); Urine Methadone Negative (Negative); Urine Methamphetamines Negative (Negative); Urine Oxycodone Negative (Negative); Urine Phencyclidine Negative (Negative); Urine Tetrahydrocannabinol Negative (Negative); Urine Tricyclic Antidepressant Negative (Negative); Urine pH Normal (Normal)
[2021-01-28 07:54] LABS: Acetaminophen < 10 ug/mL (10-30); Alanine Aminotransferase 37 IU/L (<50); Albumin 3.9 g/dL (3.5-5.0); Albumin Globulin Ratio 1.3 (1.0-2.8); Alkaline Phosphatase 117 U/L (38-126); Aspartate Aminotransferase 32 IU/L (17-59); BUN Creatinine Ratio 23.4 (6-22); Bilirubin Total 0.7 mg/dL (0.2-1.3); Blood Urea Nitrogen 30 mg/dL (9-20); Calcium 9.2 mg/dL (8.4-10.2); Carbon Dioxide 21 mmol/L (22-32); Chloride 107 mmol/L (98-107); Creatine Kinase 68 U/L (55-170); Estimated Glomerular Filt Rate 54.8 mL/min (>60); Ethanol (ETOH) < 10 mg/dL; Glucose 113 mg/dL (80-110); HEMOLYSIS < 15 (0-50); Lactate (Lactic Acid) 1.4 mmol/L (0.7-2.1); Potassium 4.3 mmol/L (3.4-5.1); Salicylate < 1.0 mg/dL (<20); Sodium 138 mmol/L (137-145); Total Protein 6.9 g/dL (6.3-8.2)
[2021-01-28 08:02] LABS: Bacteria Urine Few (2-10); Culture Indicated Urine Cult Not Indicated; RBC Urine 1-5/HPF (0-5/HPF); Squamous Epithelial Cell Urine 0-1 /HPF (0-5/HPF)
--- NOTE | 2021-01-28 08:04 | DI.RAD.S_ITS ---
PROCEDURE: XR CHEST 1V INDICATIONS: unresponsive, work of breathing, history of CHF TECHNIQUE: One view of the chest was acquired. COMPARISON: None. FINDINGS: Surgical changes and devices: None. Lungs and pleura: There is prominence of the central pulmonary vasculature. No focal airspace opacity is seen. No pleural effusions or pneumothorax. Mediastinum: Mediastinal contours appear normal. Cardiac silhouette is enlarged. Bones and chest wall: No suspicious bony lesions. Overlying soft tissues appear unremarkable. Degenerative changes are seen in the left glenohumeral joint and the acromioclavicular joints as well as the included spine. IMPRESSION: Increased size of the cardiac silhouette is most likely related to cardiomegaly, although a pericardial effusion is not excluded. Prominence of the central pulmonary vasculature is compatible with mild volume overload or congestive heart failure. Dictated by: Derick Shi M.D. on 01/28/2021 at 8:23 Approved by: Derick Shi M.D. on 01/28/2021 at 8:26
[2021-01-28 08:10] LABS: Procalcitonin 0.09 ng/mL (<0.5); Prolactin 26.5 ng/mL (3.7-17.9)
[2021-01-28 08:27] LABS: Troponin I 0.137 ng/mL (0.01-0.034)
[2021-01-28 08:29] LABS: NT-proBNP (BNP-Adult 18+) 3960 pg/mL (<450)
[2021-01-28 08:36] LABS: HCO3 VBG 21 mmol/L (23-28); PCO2 VBG 30.1 mmHg (45-50); PO2 VBG 46 mmHg (35-45); Total CO2 VBG 21 mmol/L (24-29); pH VBG 7.44 (7.33-7.43)
[2021-01-28 08:37] LABS: Oxygen Saturation VBG 84 % (70-75)
[2021-01-28 08:37] LABS: COVID19 - ADMIT (NP swab/PCR) Negative (Negative)
[2021-01-28 08:42] LABS: Thyroid Stimulating Hormone 1.38 uIU/mL (0.47-4.68)
--- NOTE | 2021-01-28 08:53 | DI.CT.S_ITS ---
PROCEDURE: CT ANGIO HEAD AND NECK INDICATIONS: unresponsive, stroke like features TECHNIQUE: After the administration of intravenous contrast, 1 mm thick sections acquired from the aortic arch through the Rodney of Virk. Post-contrast 4.5 mm thick sections then re-acquired from the foramen magnum to the vertex. 3-dimensional wgcthfa-fiuaisehe-kyyekmitxt (MIP) and/or volume rendering reformats were acquired of the central intracranial vasculature and neck separately. COMPARISON: [facility], CT, CT HEAD/BRAIN WO CON, 01/28/2021, 7:09. FINDINGS: Image quality: Excellent. BRAIN: CSF spaces: Ventricles are normal in size and shape. Basal cisterns are patent. No extra-axial fluid collections. Brain: No midline shift. No intracranial bleeds or masses. Question of subtle edema involving the midbrain, suggesting a possible acute midbrain infarct. There is also question central edema in the lori. This suggests a possible acute pontine infarct as well. Skull and face: Calvarium and facial bones appear intact, without suspicious lesions. Orbits appear normal. Sinuses: Sinuses and mastoids are clear. HEAD CT ANGIOGRAPHY: Anterior circulation: Intracranial internal carotid arteries are normal in size and flow. The flow within the paired anterior cerebral arteries is normal and symmetric. The flow within the middle cerebral arteries is normal and symmetric. The anterior communicating artery is seen. No aneurysms are seen. Posterior circulation: There is short segment embolic occlusion of the V4 segment of the distal right vertebral artery. The proximal basilar artery is patent. There is occlusion of the superior 3rd of the basilar artery. Flow within the posterior cerebral arteries is normal and symmetric. No aneurysms are seen. NECK CT ANGIOGRAPHY: Carotid system: The great vessels demonstrate a conventional anatomy as they arise from the aortic arch. The origins of the common carotid arteries appear patent. The common carotid arteries demonstrate normal caliber and courses. There is a greater than 90% left external carotid artery origin stenosis and a probable severe, greater than 70% web-like stenosis of the proximal left internal carotid artery. Calcification makes interpretation of the proximal right internal carotid artery challenging. There is felt to be at least a moderate right internal carotid artery stenosis. Posterior circulation: The origins of the vertebral arteries both appear widely patent. The more superior extracranial portions of both vertebral arteries also demonstrate normal courses and calibers. They join to form a normal appearing basilar artery. Soft tissues: Visualized neck soft tissues demonstrate no suspicious abnormalities. Orotracheal tube in place, extending to the level of inferior C3. Bones: No suspicious bony lesions. Visualized cervical spine appears normally aligned. There is a very large osteophyte off the region of the right C5-C6 uncovertebral joint which results in marked canal stenosis and foraminal stenosis IMPRESSION: 1. Embolic phenomenon to the basilar artery with occlusion of the superior 3rd of the basilar artery. There is also associated small embolus to the distal right vertebral artery involving the V4 segment. 2. Question acute infarct of the lori and midbrain. This is not definite. 3. No acute hemorrhage. 4. Web-like stenosis of the proximal left internal carotid artery, likely with a severe stenosis. There is also a high-grade stenosis of the left external carotid artery at its origin. 5. High-grade stenosis of the right side of the canal and right foramen at C5-C6 is incidentally noted. Comment: Findings were discussed with Dr. Rosenbaum on 01/28/2021 at 0942 hours and then again at 0951 hours. Any quantitative measurements of stenosis were performed using NASCET criteria. Dictated by: Nick Oliver M.D. on 01/28/2021 at 9:31 Approved by: Nick Oliver M.D. on 01/28/2021 at 10:00
--- NOTE | 2021-01-28 09:54 | PC.NURSE ---
pt has a gag, weak cough. blink. doesn't follow commands. posturing. pupils pinpoint. maintaining airway
[2021-01-28] MEDS: KETAMINE 500 MG/5 ML INJ (10:32)
[2021-01-28] MEDS: ROCURONIUM 100 MG/10 ML VIAL 120 MG IV (11:26)
--- NOTE | 2021-01-28 11:38 | PC.NURSE ---
pt bit his tongue this morning when he was having seizure like activity.
--- NOTE | 2021-01-28 11:38 | PC.NURSE ---
pt was intubated with glidescope by Dr. Rosenbaum at 1040, oral ett 7.5 at 23 cm at teeth. vent setting tV 500, fio2 40 percent . peep + 5. tolerated well, bp hypertensive after RSI meds. left Er with VSS via airlift
[2021-01-28 20:43] LABS: Osmolality, Serum 295
== END 2021-01-28 11:05 | disposition short-term general hospital (02) ==
PROVIDERS: Emergency Provider Emergency Medicine
DX: I63.22 Cerebral infarction due to unspecified occlusion or stenosis of basilar artery (principal); R41.82 Altered mental status, unspecified; Z20.822 Contact with and (suspected) exposure to COVID-19
CPT/HCPCS: 31500; 36415; 51702; 70450; 70496; 70498; 71045; 80053; 80305; 80320; 80329; 81001; 82140; 82550; 82805; 82962; 83605; 83880; 83930; 84145; 84146; 84443; 84484; 85025; 87040; 87635; 93005; 94799; 96361; 96374; 96375; 99285; 99291; 99292; C9803; Q3014; G0480; J2310; Q9967